=== PATIENT | male | born 1960 | race Asian ===

== ENCOUNTER 2018-03-14 03:09 | Emergency (ER) | payer BC ==
[~2018-03-14] VITALS: Ht 172.7 cm; Wt 72.6 kg
[2018-03-14 03:10] VITALS: BP_SYST 136
[2018-03-14] MEDS ORDERED: NACL 0.9% 1,000 ML IV ONE (03:11)
[2018-03-14] MEDS ORDERED: ONDANSETRON HCL 4 MG/2 ML VIAL IVP ONE (03:15)
[2018-03-14] MEDS ORDERED: MECLIZINE HCL 25 MG TABLET (ANITVERT) PO ONE (03:15)
[2018-03-14 03:53] LABS: BASOPHILS # (AUTO) 0.1 K/uL (0.0-0.2); BASOPHILS % (AUTO) 0.6 % (0.0-2.0); EOSINOPHILS % (AUTO) 0.1 % (0.0-4.0); HEMATOCRIT 43.9 % (36-54); HEMOGLOBIN 13.8 g/dL (14.0-18.0); LYMPHOCYTES # (AUTO) 2.1 K/uL (1.0-5.5); LYMPHOCYTES % (AUTO) 20.9 % (20.5-51.5); MEAN CORPUSCULAR HEMOGLOBIN 26 pg (27-31); MEAN CORPUSCULAR HGB CONC 32 % (32-36); MEAN CORPUSCULAR VOLUME 83 fL (79.0-98.0); MONOCYTES # (AUTO) 0.6 K/uL (0.0-1.0); MONOCYTES % (AUTO) 6.3 % (1.7-9.3); NEUTROPHILS # (AUTO) 7.2 K/uL (1.8-7.7); NEUTROPHILS % (AUTO) 72.1 % (40.0-70.0); PLATELET COUNT (AUTO) 262 K/uL (130-430); RED BLOOD CELL COUNT(AUTO) 5.31 MIL/uL (4.2-6.2); RED CELL DISTRIBUTION WIDTH 12.4 % (9.0-15.0)
[2018-03-14 04:09] LABS: CALCIUM 9.1 mg/dL (8.4-11.0); CREATININE 0.85 mg/dL (0.55-1.30)
[2018-03-14 04:12] LABS: PROTHROMBIN TIME 10.5 SECS (9.5-12.5)
[2018-03-14 04:21] LABS: TOTAL BILIRUBIN 0.3 mg/dL (0.0-1.0)
[2018-03-14 04:22] LABS: POTASSIUM 2.9 mmol/L (3.5-5.1)
[2018-03-14] MEDS ORDERED: KCL 10 mEq in 50 mL (PREMIX) 50 ML IV ONE (04:30)
[2018-03-14 05:05] LABS: BILIRUBIN,URINE NEGATIVE (NEGATIVE); BLOOD, URINE NEGATIVE (NEGATIVE); CLARITY/URINE CLEAR (CLEAR); COLOR,URINE YELLOW (YELLOW); GLUCOSE,URINE NEGATIVE (NEGATIVE); KETONES,URINE 3+ (NEGATIVE); LEUKOCYTE ESTERASE ,URINE NEGATIVE (NEGATIVE); NITRITE, URINE NEGATIVE (NEGATIVE); PH,URINE 8.5 (5.0-8.0); PROTEIN URINE NEGATIVE (NEGATIVE); UROBILINOGEN,URINE 0.2 (0.2-1.0)
[2018-03-14 05:26] LABS: BACTERIA,URINE RARE /HPF (None Seen); RBC,URINE 0-3 /HPF (0-3); WBC,URINE 0-3 /HPF (0-3)
[2018-03-14 05:47] VITALS: BP_SYST 126
== END 2018-03-14 05:47 | disposition short-term general hospital (02) ==
LOC: SED 03:09
DX: I63.9 Cerebral infarction, unspecified (principal)
CPT/HCPCS: 36415; 70450; 71045; 80053; 81000; 82550; 83690; 83880; 84484; 85025; 85610; 85730; 93005; 96361; 96365; 96375; 99285; J2405; J3480; J7030; J8597